=== PATIENT | female | born 1975 | race Caucasian/White ===

== ENCOUNTER 2016-11-16 08:45 | Outpatient (RCR) | payer OTHER ==
[~2016-11-16 08:45] MED LIST: ADIPEX-P37.5 MG PO; ALEVE 220MG220 MG PO; BIRTH CONTROL PILLS; CALCIUM PO; CEPHALEXIN500 M1 PO; CO Q-1010 M1 PO; FASTIN30 MG PO; L-LYSINE MONOHY1 POW; LOESTRIN 1/20 28 DAY PO; MULTI-VITAMIN W1 TA1 PO; NORCO 325 MG-7.1 TAB PO; ONE-A-DAY WOMEN1 TAB PO; PHENERGAN 25 TA25 MG PO; RELAFEN500 MG PO; VICODIN 5/5001 UDTAB PO; VITAMIN B COMPL1 SGL PO; VITAMIN B122500 MCG SL; VITAMIN C500 MG PO; VITAMIN E1000 U/CAP PO; VITAMIN PO; [UNRECOGNIZED DRUG - OTHER] PO; [UNRECOGNIZED DRUG - OTHER] PO; [UNRECOGNIZED DRUG - OTHER] PO
== END 2016-12-23 | disposition home or self-care (01) ==
LOC: MKS.ESL.PT
DX: M50.30 Other cervical disc degeneration, unspecified cervical region (principal)

== ENCOUNTER → 2017-01-18 | Outpatient (REF) | LOC: ZLAB.WCH 19:28 | DX: Z01.89 Encounter for other specified special examinations (principal) ==

== ENCOUNTER → 2017-05-16 | Outpatient (REF) | LOC: WSOH 09:06 | DX: Z02.89 Encounter for other administrative examinations (principal) ==

== ENCOUNTER → 2017-07-28 | Outpatient (CLI) | payer OTHER ==
[2017-07-28 13:16] LABS: ADJUSTED CALCIUM 9.3 mg/dL (8.4-10.2); ALBUMIN 4.5 gm/dL (3.5-5.0); BILIRUBIN,TOTAL 0.4 mg/dL (0.0-1.0); CALCIUM 9.7 mg/dL (8.4-10.2); CREATININE, serum 0.91 mg/dL (0.52-1.25); POTASSIUM 4.2 mmol/L (3.4-5.0); TOTAL PROTEIN 7.6 gm/dL (6.4-8.2)
== END ==
LOC: COL.LAB 12:51
PROVIDERS: Orthopaedic Surgery
DX: Z79.1 Long term (current) use of non-steroidal anti-inflammatories (NSAID) (principal)

== ENCOUNTER → 2018-01-05 | Outpatient (CLI) | payer BC | LOC: MC.RAD 09:25 | DX: N63.23 Unspecified lump in the left breast, lower outer quadrant (principal) ==

== ENCOUNTER 2018-02-10 10:52 | Outpatient (RCR) | payer OTHER | END 2018-05-11 | disposition home or self-care (01) | LOC: WSOH | DX: Z77.21 Contact with and (suspected) exposure to potentially hazardous body fluids (principal); W46.0XXA Contact with hypodermic needle, initial encounter; Y99.0 Civilian activity done for income or pay ==

== ENCOUNTER → 2019-04-03 | Outpatient (CLI) | payer OTHER | LOC: COL.RAD 03-19 08:15 | DX: M46.82 Other specified inflammatory spondylopathies, cervical region (principal); M47.812 Spondylosis without myelopathy or radiculopathy, cervical region; M48.02 Spinal stenosis, cervical region; M89.38 Hypertrophy of bone, other site; M50.222 Other cervical disc displacement at C5-C6 level; M50.30 Other cervical disc degeneration, unspecified cervical region ==

== ENCOUNTER → 2019-08-09 | Outpatient (CLI) | payer OTHER | LOC: COL.RAD 10:30 | DX: S43.421A Sprain of right rotator cuff capsule, initial encounter (principal) ==

== ENCOUNTER → 2019-08-23 | Outpatient (CLI) | payer OTHER | LOC: COL.RAD 12:56 | DX: M50.20 Other cervical disc displacement, unspecified cervical region (principal); M48.02 Spinal stenosis, cervical region; Z98.1 Arthrodesis status ==

== ENCOUNTER → 2019-11-15 | Outpatient (CLI) | payer OTHER | LOC: COL.RAD 12:45 | DX: M48.02 Spinal stenosis, cervical region (principal); M47.22 Other spondylosis with radiculopathy, cervical region; M50.10 Cervical disc disorder with radiculopathy, unspecified cervical region; Z98.1 Arthrodesis status ==

== ENCOUNTER → 2020-06-12 | Outpatient (CLI) | payer OTHER | LOC: COL.RAD 13:50 | DX: M47.812 Spondylosis without myelopathy or radiculopathy, cervical region (principal); M50.122 Cervical disc disorder at C5-C6 level with radiculopathy; M48.02 Spinal stenosis, cervical region; Z98.1 Arthrodesis status ==

== ENCOUNTER → 2021-04-29 | Outpatient (CLI) | payer OTHER | LOC: MC.RAD 14:47 | DX: Z12.31 Encounter for screening mammogram for malignant neoplasm of breast (principal) ==